=== PATIENT | female | born 1955 | race Two or more races ===

== ENCOUNTER 2024-03-15 14:35 | Emergency (ER) | payer SELFPAY ==
[~2024-03-15] VITALS: Ht 162.6 cm; Wt 60.0 kg
[2024-03-15] MEDS ORDERED: VALA1TAB PO (16:36)
[2024-03-15 16:56] VITALS: BP 176/63; PULSE 96; RESP 18; TEMP 98; O2SAT 96
== END 2024-03-15 17:02 | disposition home or self-care (01) ==
LOC: ER 14:35
DX: B02.9 Zoster without complications (principal); B54 Unspecified malaria; M25.511 Pain in right shoulder